=== PATIENT | female | born 1935 | race Caucasian/White ===

== ENCOUNTER → 2017-11-25 | Day surgery (SDC) | payer OTHER ==
[~2017-11-25] VITALS: Ht 154.9 cm; Wt 63.0 kg
[2017-11-25 08:36] VITALS: BP 122/68
[2017-11-25 09:18] LABS: BASOPHIL % 0.3 % (0-2); PLATELET COUNT 216 x10^3mcL (130-400); RED CELL DISTRIBUTION WIDTH 13.9 % (11.5-14.5)
[2017-11-25 11:50] VITALS: BP 116/67
[2017-11-25 12:30] VITALS: BP 108/62
[2017-11-25 13:05] VITALS: BP 131/71
== END | disposition home or self-care (01) ==
LOC: CT 08:04
PROVIDERS: Surgery
PROC: 0FBG3ZX Excision of Pancreas, Percutaneous Approach, Diagnostic (ICD-10-PCS; principal; 2017-11-25)
DX: C25.2 Malignant neoplasm of tail of pancreas (principal); R19.05 Periumbilic swelling, mass or lump; N13.30 Unspecified hydronephrosis; K44.9 Diaphragmatic hernia without obstruction or gangrene; M47.896 Other spondylosis, lumbar region; Z96.659 Presence of unspecified artificial knee joint; Z86.010 Personal history of colon polyps; Z68.26 Body mass index [BMI] 26.0-26.9, adult
CPT/HCPCS: 49180; 88344; C1894; J2001